=== PATIENT | male | born 1990 | race Caucasian/White ===

== ENCOUNTER 2018-08-03 13:39 | Emergency (ER) | payer OTHER ==
[2018-08-03] MEDS ORDERED: Tetan/Diph/Pertus SYR(Tdap)* 0.5 ML SYR(BOOSTRIX) use SYR IM ONE (14:07)
--- NOTE | 2018-08-03 14:40 | RAD ---
HISTORY: crush injury COMPARISONS: None VIEWS: 3 , Frontal, lateral, and oblique views of the fourth digit of the left hand. Evaluation of the proximal phalanx is limited by metallic jewelry. FINDINGS: BONE DENSITY: Normal. BONES: There is a comminuted fracture of the tuft of the distal phalanx of the fourth digit without displacement. JOINTS: There is no arthropathy. ALIGNMENT: There is no dislocation. SOFT TISSUES: Unremarkable. OTHER FINDINGS: None. IMPRESSION: COMMINUTED FRACTURE OF THE TUFT OF THE DISTAL PHALANX OF THE FOURTH DIGIT.
[2018-08-03] MEDS ORDERED: LORazepam TAB(*) 1 MG PO ONE ×2 (15:35→15:36)
[2018-08-03 17:15] VITALS: BP 141/84
--- NOTE | 2018-08-03 17:24 | ED ---
Laceration/Wound HPI - HPI Summary HPI Summary: Patient is an otherwise healthy 28-year-old male presenting to the ED with a crush injury to the ring finger on the left hand by a car door. Laceration is approximately 0.5 cm in length and superficial. Involvement of the nailbed. Patient is tearful, complaining of 10/10 pain, constant throbbing. Denies any other injuries or concerns. - History of Current Complaint Stated Complaint: FINGER LAC Time Seen by Provider: 08/03/18 13:47 Hx Obtained From: Patient Mechanism of Injury: Sharp/Blunt Trauma Onset/Duration: Sudden Onset Aggravating: Movement Alleviating: Compression Timing: Constant Onset Severity: Severe Current Severity: Moderate Pain Intensity: 1 Pain Scale Used: 0-10 Numeric Associated Signs & Symptoms: Negative - Allergy/Home Medications Allergies/Adverse Reactions: Allergies Allergy/AdvReac Type Severity Reaction Status Date / Time No Known Allergies Allergy Verified 08/03/18 13:43 PMH/Surg Hx/FS Hx/Imm Hx Previously Healthy: Yes - Immunization History Hx Pertussis Vaccination: No Immunizations Up to Date: Yes Infectious Disease History: No Infectious Disease History: Denies: Traveled Outside the [place] in Last 30 Days - Social History Occupation: Employed Full-time Lives: With Family Alcohol Use: Occasionally Hx Substance Use: No Substance Use Type: Reports: None Smoking Status (MU): Never Smoked Tobacco Review of Systems Constitutional: Negative Negative: Fever, Chills, Fatigue, Skin Diaphoresis Negative: Epistaxis, Dental Pain Negative: Chest Pain Genitourinary: Negative Positive: no symptoms reported, see HPI Positive: Arthralgia - ring finger crush injury Positive: Other - .5cm laceration Neurological: Negative All Other Systems Reviewed And Are Negative: Yes Physical Exam Triage Information Reviewed: Yes Vital Signs On Initial Exam: Initial Vitals Temp Pulse Resp BP Pulse Ox 97.2 F 105 16 144/106 98 08/03/18 13:40 08/03/18 13:40 08/03/18 13:40 08/03/18 13:40 08/03/18 13:40 Vital Signs Reviewed: Yes Appearance: Positive: Well-Appearing, Well-Nourished Skin: Positive: Warm, Skin Color Reflects Adequate Perfusion, Other - laceration - crush injury Head/Face: Positive: Normal Head/Face Inspection Eyes: Positive: Normal, ALLEN, Conjunctiva Clear Neck: Positive: Supple, No Lymphadenopathy Respiratory/Lung Sounds: Positive: Clear to Auscultation, Breath Sounds Present Cardiovascular: Positive: RRR, Pulses are Symmetrical in both Upper and Lower Extremities Musculoskeletal: Positive: Strength/ROM Intact Neurological: Positive: Speech Normal Psychiatric: Positive: Affect/Mood Appropriate AVPU Assessment: Alert Diagnostics - Vital Signs Vital Signs Temp Pulse Resp BP Pulse Ox 08/03/18 17:14 97.8 F 89 16 141/84 97 08/03/18 15:41 16 08/03/18 13:40 97.2 F 105 16 144/106 98 - Laboratory Lab Statement: Any lab studies that have been ordered have been reviewed, and results considered in the medical decision making process. Laceration Repair Course/Dx - Course Course Of Treatment: During the course of treatment, the patient is evaluated for left ring finger crush injury with a 0.5 cm laceration. Cleanse wound thoroughly and digital block with good effect. 2 sutures placed. Xeroform gauze and tube gauze placed. Tetanus updated. - Differential Dx Differental Diagnoses: Laceration - Clinical Impression Provider Diagnoses: Laceration Discharge - Sign-Out/Discharge Documenting (check all that apply): Patient Departure - Discharge Plan Condition: Stable Disposition: HOME Prescriptions: traMADol TAB* [Ultram*] 50 mg PO Q8H PRN #9 tab MDD 3 PRN Reason: Pain Patient Education Materials: Nail Removal (ED) Referrals: No Primary Care Phys,NOPCP [Primary Care Provider] - Additional Instructions: Please follow-up with your PCP Please keep the splint applied 6 weeks or until you follow up with your orthopedic physician Nailbeds should heal in approximately 6 months to one year time Keep the area covered 24 hours then reapply a new bandage with antibiotic ointment or Vaseline and gauze wrapped After approximately 5-7 days, keep the area open to air You may shower with soap and water as normal Ibuprofen and Tylenol use intermittently every 3 hours for pain control Tylenol 650 mg Ibuprofen 600 mg For pain not well controlled with Tylenol or ibuprofen, you may use tramadol 50 mg up to 3 times daily - Billing Disposition and Condition Condition: STABLE Disposition: Home
== END 2018-08-03 17:14 | disposition home or self-care (01) ==
LOC: ED 13:39
DX: S67.195A Crushing injury of left ring finger, initial encounter (principal); W23.0XXA Caught, crushed, jammed, or pinched between moving objects, initial encounter; Y92.9 Unspecified place or not applicable; Z23 Encounter for immunization
CPT/HCPCS: 12001; 73140; 90471; 90715; 99282; A9270-GY